=== PATIENT | female | born 1950 | race Caucasian/White ===

== ENCOUNTER 2018-12-27 10:28 | Emergency (ER) | payer MEDICARE ==
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
[2018-12-27] MEDS ORDERED: HYDROcodone/Acetaminophen 5/325 mg Tablet ONE (12:12)
[2018-12-27] MEDS ORDERED: Ibuprofen 400 MG TAB ONE (12:12)
[2018-12-27] MEDS ORDERED: Acetaminophen 325 MG TAB ONE (12:12)
== END 2018-12-27 12:32 | disposition home or self-care (01) ==
LOC: MADERS 10:28
DX: S46.912A Strain of unspecified muscle, fascia and tendon at shoulder and upper arm level, left arm, initial encounter (principal); I10 Essential (primary) hypertension; E11.40 Type 2 diabetes mellitus with diabetic neuropathy, unspecified; V49.9XXA Car occupant (driver) (passenger) injured in unspecified traffic accident, initial encounter

== ENCOUNTER 2019-07-25 12:41 | Outpatient (CLI) | payer MEDICARE ==
--- NOTE | 2019-07-25 13:26 | RAD ---
EXAM: LUMBAR SPINE FIVE VIEWS INCLUDING STANDING FLEXION AND EXTENSION VIEWS: 07/25/19 HISTORY: Lumbar spinal canal stenosis. Post laminectomy. COMPARISON: 07/22/17. FINDINGS: Extensive multilevel disc osteophytosis and facet arthrosis. Postop laminectomy changes at L3 and L4. Moderate dextroscoliosis. Grade I anterolisthesis of L4 on L5 and L3 on L4 with little overall romero e from the prior study. No significant abnormal translation between flexion and extension. No acute f racture or dislocation. Disc space narrowing and vacuum phenomenon at L4-L5. IMPRESSION: Severe spondylosis. Dextroscoliosis. Postoperative laminectomy at L3 and L4. Anterolisthesis of L3 on L3 and L4 on L5 without overt abnormal translation. POS: OFF
== END 2019-07-25 12:42 | disposition home or self-care (01) ==
LOC: MADRAD 12:41
PROVIDERS: ATTEND Specialist
DX: M48.062 Spinal stenosis, lumbar region with neurogenic claudication (principal); M96.1 Postlaminectomy syndrome, not elsewhere classified; M47.816 Spondylosis without myelopathy or radiculopathy, lumbar region; M43.16 Spondylolisthesis, lumbar region; M41.9 Scoliosis, unspecified; Z98.890 Other specified postprocedural states
CPT/HCPCS: 72110

== ENCOUNTER 2019-10-14 17:11 | Emergency (ER) | payer MEDICARE ==
[2019-10-14] MEDS ORDERED: Ketorolac Tromethamine 30 MG/ML VIAL ONE (18:37)
[2019-10-14] MEDS ORDERED: Cyclobenzaprine 10 MG TAB ONE (18:37)
== END 2019-10-14 19:51 | disposition home or self-care (01) ==
LOC: MADERS 17:11
DX: S39.012A Strain of muscle, fascia and tendon of lower back, initial encounter (principal); I10 Essential (primary) hypertension; E78.5 Hyperlipidemia, unspecified; E11.40 Type 2 diabetes mellitus with diabetic neuropathy, unspecified; Z79.84 Long term (current) use of oral hypoglycemic drugs; Z79.899 Other long term (current) drug therapy; X50.9XXA Other and unspecified overexertion or strenuous movements or postures, initial encounter
CPT/HCPCS: 96372; 99283; J1885

== ENCOUNTER 2019-10-23 16:58 | Inpatient (IN) | payer MEDICARE ==
[2019-10-23] MEDS ORDERED: Meloxicam 7.5 MG TAB PO SCH (21:00)
[2019-10-23] MEDS ORDERED: traMADol HCl 50 MG TAB PO PRN (21:14)
[2019-10-23] MEDS ORDERED: Cyclobenzaprine 10 MG TAB PO PRN ×2 (21:15→21:19)
[2019-10-23] MEDS ORDERED: Artificial Tear Sol 15 ML BOT EA EYE SCH (21:30)
[2019-10-23] MEDS ORDERED: Gabapentin 100 MG CAP PO SCH ×2 (21:45→22:30)
[2019-10-23] MEDS ORDERED: Ondansetron ODT 4 MG TAB PO PRN (22:58)
[2019-10-23] MEDS ORDERED: Acetaminophen 325 MG TAB PO PRN (22:58)
[2019-10-23] MEDS ORDERED: Dextrose 5% in Water 1,000 ML IV PRN (23:10)
[2019-10-23] MEDS ORDERED: Dextrose 50% Abboject 50 ML SYRINGE SLOW IVP PRN (23:10)
[2019-10-24] MEDS: traMADol HCl 50 MG TAB PO PRN ×3 (04:54→17:59)
[2019-10-24] MEDS: Aspirin 325 MG TAB PO SCH (08:11)
[2019-10-24] MEDS: Cyanocobalamin (Vitamin B-12) 1,000 MCG TAB PO SCH (08:11)
[2019-10-24] MEDS: Lisinopril 5 MG TAB PO SCH (08:11)
[2019-10-24] MEDS: Multivit, Therapeutic 1 TAB PO SCH (08:11)
[2019-10-24] MEDS: Alogliptin 6.25 MG TAB PO SCH (08:11)
[2019-10-24] MEDS: Amlodipine 5 MG TAB PO SCH (08:11)
[2019-10-24] MEDS: Cyclobenzaprine 10 MG TAB PO SCH ×3 (08:12→20:29)
[2019-10-24] MEDS: Enoxaparin Sodium 30 MG/0.3 ML SYRINGE SC SCH (08:12)
[2019-10-24] MEDS: Furosemide 20 MG TAB PO SCH (08:12)
[2019-10-24] MEDS: Gabapentin 100 MG CAP PO SCH ×2 (08:12→20:29)
[2019-10-24] MEDS: metFORMIN 500 MG TAB PO SCH (08:12)
[2019-10-24] MEDS: Artificial Tear Sol 15 ML BOT EA EYE SCH ×2 (08:12→20:31)
[2019-10-24] MEDS ORDERED: Gabapentin 100 MG CAP PO SCH ×2 (09:00)
[2019-10-24] MEDS: Meloxicam 7.5 MG TAB PO SCH (20:29)
[2019-10-24] MEDS: Simvastatin 20 MG TAB PO SCH (20:30)
[2019-10-24] MEDS ORDERED: Non-Formulary Item 1 EACH (Lovastatin [Lovastatin] 20 MG) PO SCH (21:00)
[2019-10-25] MEDS: traMADol HCl 50 MG TAB PO PRN ×4 (03:20→21:35)
[2019-10-25] MEDS: Alogliptin 6.25 MG TAB PO SCH (08:21)
[2019-10-25] MEDS: Cyclobenzaprine 10 MG TAB PO SCH ×3 (08:21→20:09)
[2019-10-25] MEDS: Amlodipine 5 MG TAB PO SCH (08:21)
[2019-10-25] MEDS: Enoxaparin Sodium 30 MG/0.3 ML SYRINGE SC SCH (08:21)
[2019-10-25] MEDS: Gabapentin 100 MG CAP PO SCH ×2 (08:22→20:10)
[2019-10-25] MEDS: Furosemide 20 MG TAB PO SCH (08:22)
[2019-10-25] MEDS: Aspirin 325 MG TAB PO SCH (08:22)
[2019-10-25] MEDS: metFORMIN 500 MG TAB PO SCH (08:22)
[2019-10-25] MEDS: Lisinopril 5 MG TAB PO SCH (08:23)
[2019-10-25] MEDS: Multivit, Therapeutic 1 TAB PO SCH (08:23)
[2019-10-25] MEDS: Cyanocobalamin (Vitamin B-12) 1,000 MCG TAB PO SCH (08:23)
[2019-10-25] MEDS: Artificial Tear Sol 15 ML BOT EA EYE SCH ×2 (08:25→20:14)
[2019-10-25] MEDS: Meloxicam 7.5 MG TAB PO SCH (20:09)
[2019-10-25] MEDS: Simvastatin 20 MG TAB PO SCH (20:09)
[2019-10-26] MEDS: traMADol HCl 50 MG TAB PO PRN ×3 (05:34→20:52)
[2019-10-26] MEDS: Cyanocobalamin (Vitamin B-12) 1,000 MCG TAB PO SCH (08:06)
[2019-10-26] MEDS: Gabapentin 100 MG CAP PO SCH ×2 (08:06→20:51)
[2019-10-26] MEDS: metFORMIN 500 MG TAB PO SCH (08:06)
[2019-10-26] MEDS: Lisinopril 5 MG TAB PO SCH (08:06)
[2019-10-26] MEDS: Aspirin 325 MG TAB PO SCH (08:06)
[2019-10-26] MEDS: Alogliptin 6.25 MG TAB PO SCH (08:06)
[2019-10-26] MEDS: Amlodipine 5 MG TAB PO SCH (08:06)
[2019-10-26] MEDS: Multivit, Therapeutic 1 TAB PO SCH (08:06)
[2019-10-26] MEDS: Cyclobenzaprine 10 MG TAB PO SCH ×3 (08:06→20:50)
[2019-10-26] MEDS: Artificial Tear Sol 15 ML BOT EA EYE SCH ×2 (08:07→20:50)
[2019-10-26] MEDS: Enoxaparin Sodium 30 MG/0.3 ML SYRINGE SC SCH (08:07)
[2019-10-26] MEDS: Furosemide 20 MG TAB PO SCH (08:08)
[2019-10-26] MEDS ORDERED: traMADol HCl 50 MG TAB PO SCH (10:30)
--- NOTE | 2019-10-26 11:15 | HP ---
PRIMARY CARE PHYSICIAN: Kaitlin Dunlap, Nurse Practitioner, [place]. REASON FOR ADMISSION: For skilled rehabilitation at [facility], status post persistent progressive degenerative lumbar spine pain, weakness, and compression. HISTORY OF PRESENT ILLNESS: Ms. Vogt is a 69-year-old very pleasant female who presented to the emergency room on October 14 due to persistent lower back pain. Patient does have a history of hypertension; diabetes type 2; recurrent chronic back pain, status post laminectomy one year ago, complicated by postoperative wound cellulitis. Patient states that the back pain did not resolve with continued intermittent monthly epidural steroid injections since then. Patient had a repeat MRI two months ago that showed worsening degenerative disease with L3-L4 nerve compressions. She was not reevaluated by neurosurgeon, but presented to the emergency room as she was unable to stand up or ambulate after moving some [place] trees a couple of days ago. Patient during the emergency visit stated that pain was 10/10 in severity. She denies weakness to extremities, but was unable to ambulate. Patient had a repeat lumbar spine CT on the and this confirmed multilevel lumbar degenerative and postoperative changes with area of canal and foraminal narrowing. The decision was made to consult with the neurosurgical team who recommended conservative plan and advised to consult with pain specialist for PAVEL and rehab placement. Unfortunately, patient was unable to see neurosurgeon during this hospitalization as she was recommended to follow up with Dr. Thomason as an outpatient who did surgery two years ago. The patient had epidural steroid injections for the back today and due to physical decondition, gait instability, decreased ambulation the decision was made to admit the patient to skilled rehabilitation prior to discharge back to her home. Upon evaluation of patient today, she was excited to start physical therapy, but she was a little upset due to it being [place] season and she wanted to spend [place] with her family. Patient denied any fever, chest pain, shortness of breath, incontinence of stool or urine. No palpitations. PAST MEDICAL HISTORY: Hypertension, diabetes type 2, obesity, hyperlipidemia, chronic lower back pain, and peripheral neuropathy. PAST SURGICAL HISTORY: Laminectomy in 2018, cholecystectomy, and hysterectomy. HOME MEDICATIONS: 1. Amlodipine 10 mg daily. 2. Alogliptin benzoate 12.5 daily. 3. Aspirin 325 daily. 4. Vitamin B12, 1000 mcg daily. 5. Flexeril 10 mg t.i.d. 6. Furosemide 20 mg daily. 7. Gabapentin 200 mg b.i.d. 8. Meloxicam 15 at bedtime. 9. Metformin 500 q.a.m. 10. Simvastatin 10 at bedtime. 11. Tramadol 50 q.6 p.r.n. ALLERGIES: CODEINE. CODE STATUS: Patient is a full code. FAMILY HISTORY: Significant for diabetes and coronary artery disease. SOCIAL HISTORY: Patient resides in [facility]. She lives alone. She has a daughter who visits. She denies any tobacco, alcohol, or illicit drug use. REVIEW OF SYSTEMS: Noted in the HPI, otherwise all other systems reviewed x14 were negative. PHYSICAL EXAMINATION: VITAL SIGNS: Temperature 98.5, pulse 78, respirations 16, O2 is 93% on room air , and blood pressure 124/60. GENERAL: Patient is alert, awake, and oriented x3. Very pleasant, sitting comfortably in bed. HEENT: Normocephalic and atraumatic. Moist oral mucous membrane. NECK: No JVD. No carotid bruit. RESPIRATORY: Good air entry bilaterally. No wheezing. No crackles. CARDIOVASCULAR: S1, S2. Rate rhythm regular. ABDOMEN: Positive bowel sounds. Nontender and nondistended. No guarding. No rebound. BACK: Positive tenderness to midthoracic to sacral area with bilateral CVA tenderness, although nonspecific. NEUROLOGIC: Patient is alert, awake, and oriented x3. Moving all extremities without any symmetrical neurological deficit. ASSESSMENT: 1. Gait instability. 2. Intractable back pain due to progressive degenerative lumbar spine disease with nerve compression. 3. Hypertension. 4. Diabetes, type 2. 5. Peripheral neuropathy. PLAN: Patient is a 69-year-old female, who will be admitted to the [facility]. We will consult Physical Therapy to help with gait stability and strengthening. We will consult Occupational Therapy to help with activities of daily living prior to discharge back to her home. We will resume patient's home medications. We will do Accu-Cheks fasting just once a day. We will place the patient on a 2000-calorie carb diet. Patient is concerned about her home medications as some where not given in [facility]. I advised the daughter to bring all of her medication bottles and the original pack for us to be able to reconcile her medications. Patient was also notified that she could have a Day Pass on , so she could spend time with her family. ESTIMATED LENGTH OF STAY: Two to three weeks. FOLLOWUP: Patient to follow up with neurosurgeon as an outpatient and pain specialist as an outpatient. CODE STATUS: Full code. Job ID: [id number] MTDD
[2019-10-26] MEDS: Simvastatin 20 MG TAB PO SCH (20:51)
[2019-10-26] MEDS: Meloxicam 7.5 MG TAB PO SCH (20:52)
[2019-10-27] MEDS: traMADol HCl 50 MG TAB PO PRN ×3 (08:30→22:12)
[2019-10-27] MEDS: Artificial Tear Sol 15 ML BOT EA EYE SCH ×2 (08:32→21:29)
[2019-10-27] MEDS: Enoxaparin Sodium 30 MG/0.3 ML SYRINGE SC SCH (08:33)
[2019-10-27] MEDS: Alogliptin 6.25 MG TAB PO SCH (08:33)
[2019-10-27] MEDS: Multivit, Therapeutic 1 TAB PO SCH (08:34)
[2019-10-27] MEDS: Gabapentin 100 MG CAP PO SCH ×2 (08:34→21:30)
[2019-10-27] MEDS: Amlodipine 5 MG TAB PO SCH (08:34)
[2019-10-27] MEDS: Aspirin 325 MG TAB PO SCH (08:34)
[2019-10-27] MEDS: Lisinopril 5 MG TAB PO SCH (08:34)
[2019-10-27] MEDS: Furosemide 20 MG TAB PO SCH (08:35)
[2019-10-27] MEDS: Cyanocobalamin (Vitamin B-12) 1,000 MCG TAB PO SCH (08:35)
[2019-10-27] MEDS: metFORMIN 500 MG TAB PO SCH (08:35)
[2019-10-27] MEDS: Cyclobenzaprine 10 MG TAB PO SCH ×3 (08:39→21:30)
[2019-10-27] MEDS: Meloxicam 7.5 MG TAB PO SCH (21:30)
[2019-10-27] MEDS: Simvastatin 20 MG TAB PO SCH (21:30)
[2019-10-28] MEDS: Alogliptin 6.25 MG TAB PO SCH (08:54)
[2019-10-28] MEDS: Enoxaparin Sodium 30 MG/0.3 ML SYRINGE SC SCH (08:55)
[2019-10-28] MEDS: Amlodipine 5 MG TAB PO SCH (08:55)
[2019-10-28] MEDS: Multivit, Therapeutic 1 TAB PO SCH (08:55)
[2019-10-28] MEDS: Gabapentin 100 MG CAP PO SCH ×2 (08:56→21:01)
[2019-10-28] MEDS: Aspirin 325 MG TAB PO SCH (08:56)
[2019-10-28] MEDS: Furosemide 20 MG TAB PO SCH (08:56)
[2019-10-28] MEDS: Cyclobenzaprine 10 MG TAB PO SCH ×3 (08:56→21:01)
[2019-10-28] MEDS: metFORMIN 500 MG TAB PO SCH (08:56)
[2019-10-28] MEDS: Lisinopril 5 MG TAB PO SCH (08:56)
[2019-10-28] MEDS: Cyanocobalamin (Vitamin B-12) 1,000 MCG TAB PO SCH (08:56)
[2019-10-28] MEDS: traMADol HCl 50 MG TAB PO PRN ×3 (08:57→21:05)
[2019-10-28] MEDS: Artificial Tear Sol 15 ML BOT EA EYE SCH ×2 (15:11→21:01)
[2019-10-28] MEDS: Meloxicam 7.5 MG TAB PO SCH (21:01)
[2019-10-28] MEDS: Simvastatin 20 MG TAB PO SCH (21:02)
[2019-10-29] MEDS: Amlodipine 5 MG TAB PO SCH (08:51)
[2019-10-29] MEDS: metFORMIN 500 MG TAB PO SCH (08:51)
[2019-10-29] MEDS: Aspirin 325 MG TAB PO SCH (08:51)
[2019-10-29] MEDS: Gabapentin 100 MG CAP PO SCH ×2 (08:51→20:18)
[2019-10-29] MEDS: Furosemide 20 MG TAB PO SCH (08:51)
[2019-10-29] MEDS: Multivit, Therapeutic 1 TAB PO SCH (08:52)
[2019-10-29] MEDS: Enoxaparin Sodium 30 MG/0.3 ML SYRINGE SC SCH (08:52)
[2019-10-29] MEDS: Cyanocobalamin (Vitamin B-12) 1,000 MCG TAB PO SCH (08:52)
[2019-10-29] MEDS: Cyclobenzaprine 10 MG TAB PO SCH ×3 (08:52→20:18)
[2019-10-29] MEDS: Artificial Tear Sol 15 ML BOT EA EYE SCH ×2 (08:52→20:18)
[2019-10-29] MEDS: Lisinopril 5 MG TAB PO SCH (08:52)
[2019-10-29] MEDS: Alogliptin 6.25 MG TAB PO SCH (08:53)
[2019-10-29] MEDS: Senokot S 8.6-50 MG TAB PO PRN (15:42)
[2019-10-29] MEDS: Simvastatin 20 MG TAB PO SCH (20:18)
[2019-10-29] MEDS: Meloxicam 7.5 MG TAB PO SCH (20:18)
[2019-10-29] MEDS: traMADol HCl 50 MG TAB PO PRN (20:19)
[2019-10-30] MEDS: traMADol HCl 50 MG TAB PO PRN ×3 (04:17→20:25)
[2019-10-30] MEDS: Gabapentin 100 MG CAP PO SCH ×2 (08:52→20:25)
[2019-10-30] MEDS: Enoxaparin Sodium 30 MG/0.3 ML SYRINGE SC SCH (08:52)
[2019-10-30] MEDS: Cyclobenzaprine 10 MG TAB PO SCH ×3 (08:53→20:25)
[2019-10-30] MEDS: Amlodipine 5 MG TAB PO SCH (08:53)
[2019-10-30] MEDS: metFORMIN 500 MG TAB PO SCH (08:53)
[2019-10-30] MEDS: Artificial Tear Sol 15 ML BOT EA EYE SCH ×2 (08:54→20:24)
[2019-10-30] MEDS: Cyanocobalamin (Vitamin B-12) 1,000 MCG TAB PO SCH (08:54)
[2019-10-30] MEDS: Aspirin 325 MG TAB PO SCH (08:54)
[2019-10-30] MEDS: Furosemide 20 MG TAB PO SCH (08:54)
[2019-10-30] MEDS: Alogliptin 6.25 MG TAB PO SCH (08:54)
[2019-10-30] MEDS: Lisinopril 5 MG TAB PO SCH (08:54)
[2019-10-30] MEDS: Multivit, Therapeutic 1 TAB PO SCH (08:54)
[2019-10-30] MEDS: Meloxicam 7.5 MG TAB PO SCH (20:25)
[2019-10-30] MEDS: Simvastatin 20 MG TAB PO SCH (20:25)
[2019-10-31] MEDS: Lisinopril 5 MG TAB PO SCH (08:04)
[2019-10-31] MEDS: Gabapentin 100 MG CAP PO SCH ×2 (08:04→20:40)
[2019-10-31] MEDS: Aspirin 325 MG TAB PO SCH (08:04)
[2019-10-31] MEDS: Alogliptin 6.25 MG TAB PO SCH (08:05)
[2019-10-31] MEDS: Cyanocobalamin (Vitamin B-12) 1,000 MCG TAB PO SCH (08:05)
[2019-10-31] MEDS: Multivit, Therapeutic 1 TAB PO SCH (08:05)
[2019-10-31] MEDS: Amlodipine 5 MG TAB PO SCH (08:05)
[2019-10-31] MEDS: Enoxaparin Sodium 30 MG/0.3 ML SYRINGE SC SCH (08:05)
[2019-10-31] MEDS: metFORMIN 500 MG TAB PO SCH (08:05)
[2019-10-31] MEDS: Furosemide 20 MG TAB PO SCH (08:05)
[2019-10-31] MEDS: Artificial Tear Sol 15 ML BOT EA EYE SCH ×2 (08:06→20:42)
[2019-10-31] MEDS: Senokot S 8.6-50 MG TAB PO PRN (08:14)
[2019-10-31] MEDS: traMADol HCl 50 MG TAB PO PRN ×2 (08:14→16:54)
[2019-10-31] MEDS: Cyclobenzaprine 10 MG TAB PO SCH ×3 (10:16→20:42)
[2019-10-31] MEDS: Lidocaine 5% Patch TD SCH (10:16)
[2019-10-31] MEDS ORDERED: Bisacodyl 10 MG SUPP PR PRN (13:52)
[2019-10-31] MEDS: Polyethylene Glycol 3350 17 GM Packet PO PRN (14:27)
[2019-10-31] MEDS: Acetaminophen 500 MG TAB PO SCH ×2 (14:27→21:03)
[2019-10-31] MEDS: Simvastatin 20 MG TAB PO SCH (20:41)
[2019-10-31] MEDS: Meloxicam 7.5 MG TAB PO SCH (20:42)
[2019-10-31] MEDS: Lidocaine Patch Removal 1 EACH TOP SCH (21:09)
[2019-11-01] MEDS: Acetaminophen 500 MG TAB PO SCH ×3 (05:23→22:30)
[2019-11-01] MEDS: Gabapentin 100 MG CAP PO SCH ×2 (08:36→20:18)
[2019-11-01] MEDS: Cyclobenzaprine 10 MG TAB PO SCH ×3 (08:36→20:18)
[2019-11-01] MEDS: Amlodipine 5 MG TAB PO SCH (08:36)
[2019-11-01] MEDS: Furosemide 20 MG TAB PO SCH (08:37)
[2019-11-01] MEDS: Aspirin 325 MG TAB PO SCH (08:37)
[2019-11-01] MEDS: Lisinopril 5 MG TAB PO SCH (08:37)
[2019-11-01] MEDS: Alogliptin 6.25 MG TAB PO SCH (08:37)
[2019-11-01] MEDS: Cyanocobalamin (Vitamin B-12) 1,000 MCG TAB PO SCH (08:37)
[2019-11-01] MEDS: metFORMIN 500 MG TAB PO SCH (08:37)
[2019-11-01] MEDS: Multivit, Therapeutic 1 TAB PO SCH (08:38)
[2019-11-01] MEDS: Enoxaparin Sodium 30 MG/0.3 ML SYRINGE SC SCH (08:38)
[2019-11-01] MEDS: Lidocaine 5% Patch TD SCH (08:38)
[2019-11-01] MEDS: Artificial Tear Sol 15 ML BOT EA EYE SCH ×2 (08:39→20:19)
[2019-11-01] MEDS: traMADol HCl 50 MG TAB PO PRN (11:09)
[2019-11-01] MEDS: Meloxicam 7.5 MG TAB PO SCH (20:18)
[2019-11-01] MEDS: Simvastatin 20 MG TAB PO SCH (20:18)
[2019-11-01] MEDS: Lidocaine Patch Removal 1 EACH TOP SCH (22:30)
[2019-11-02] MEDS: traMADol HCl 50 MG TAB PO PRN ×2 (00:35→08:38)
[2019-11-02] MEDS: Acetaminophen 500 MG TAB PO SCH ×3 (05:16→21:15)
[2019-11-02] MEDS: Aspirin 325 MG TAB PO SCH (08:28)
[2019-11-02] MEDS: Enoxaparin Sodium 30 MG/0.3 ML SYRINGE SC SCH (08:28)
[2019-11-02] MEDS: Amlodipine 5 MG TAB PO SCH (08:29)
[2019-11-02] MEDS: Cyclobenzaprine 10 MG TAB PO SCH ×3 (08:29→21:15)
[2019-11-02] MEDS: Alogliptin 6.25 MG TAB PO SCH (08:29)
[2019-11-02] MEDS: Cyanocobalamin (Vitamin B-12) 1,000 MCG TAB PO SCH (08:30)
[2019-11-02] MEDS: metFORMIN 500 MG TAB PO SCH (08:30)
[2019-11-02] MEDS: Furosemide 20 MG TAB PO SCH (08:30)
[2019-11-02] MEDS: Multivit, Therapeutic 1 TAB PO SCH (08:30)
[2019-11-02] MEDS: Gabapentin 100 MG CAP PO SCH ×2 (08:30→21:14)
[2019-11-02] MEDS: Artificial Tear Sol 15 ML BOT EA EYE SCH ×2 (08:30→21:12)
[2019-11-02] MEDS: Senokot S 8.6-50 MG TAB PO PRN (08:39)
[2019-11-02] MEDS: Lidocaine 5% Patch TD SCH (10:33)
[2019-11-02] MEDS: Simvastatin 20 MG TAB PO SCH (21:13)
[2019-11-02] MEDS: Meloxicam 7.5 MG TAB PO SCH (21:14)
[2019-11-02] MEDS: Lidocaine Patch Removal 1 EACH TOP SCH (21:15)
[2019-11-03] MEDS: traMADol HCl 50 MG TAB PO PRN (02:32)
[2019-11-03] MEDS: Acetaminophen 500 MG TAB PO SCH ×3 (05:40→21:22)
[2019-11-03] MEDS: Alogliptin 6.25 MG TAB PO SCH (08:11)
[2019-11-03] MEDS: Cyclobenzaprine 10 MG TAB PO SCH ×3 (08:11→21:21)
[2019-11-03] MEDS: Aspirin 325 MG TAB PO SCH (08:11)
[2019-11-03] MEDS: Artificial Tear Sol 15 ML BOT EA EYE SCH ×2 (08:11→21:21)
[2019-11-03] MEDS: Multivit, Therapeutic 1 TAB PO SCH (08:11)
[2019-11-03] MEDS: Enoxaparin Sodium 30 MG/0.3 ML SYRINGE SC SCH (08:11)
[2019-11-03] MEDS: metFORMIN 500 MG TAB PO SCH (08:12)
[2019-11-03] MEDS: Furosemide 20 MG TAB PO SCH (08:12)
[2019-11-03] MEDS: Amlodipine 5 MG TAB PO SCH (08:12)
[2019-11-03] MEDS: Gabapentin 100 MG CAP PO SCH ×2 (08:12→21:21)
[2019-11-03] MEDS: Cyanocobalamin (Vitamin B-12) 1,000 MCG TAB PO SCH (08:13)
[2019-11-03] MEDS: HYDROcodone/Acetaminophen 7.5/325 mg Tablet PO SCH ×2 (09:29→19:25)
[2019-11-03] MEDS: Lidocaine 5% Patch TD SCH (09:30)
[2019-11-03] MEDS: Senokot S 8.6-50 MG TAB PO PRN (14:43)
[2019-11-03] MEDS: Meloxicam 7.5 MG TAB PO SCH (21:21)
[2019-11-03] MEDS: Simvastatin 20 MG TAB PO SCH (21:21)
[2019-11-03] MEDS: Lidocaine Patch Removal 1 EACH TOP SCH (21:28)
[2019-11-04] MEDS: HYDROcodone/Acetaminophen 7.5/325 mg Tablet PO SCH ×4 (00:54→17:36)
[2019-11-04] MEDS: Acetaminophen 500 MG TAB PO SCH (05:57)
[2019-11-04] MEDS: Alogliptin 6.25 MG TAB PO SCH (08:15)
[2019-11-04] MEDS: Multivit, Therapeutic 1 TAB PO SCH (08:15)
[2019-11-04] MEDS: Furosemide 20 MG TAB PO SCH (08:16)
[2019-11-04] MEDS: Cyanocobalamin (Vitamin B-12) 1,000 MCG TAB PO SCH (08:16)
[2019-11-04] MEDS: Gabapentin 100 MG CAP PO SCH ×2 (08:16→21:40)
[2019-11-04] MEDS: Enoxaparin Sodium 30 MG/0.3 ML SYRINGE SC SCH (08:16)
[2019-11-04] MEDS: Cyclobenzaprine 10 MG TAB PO SCH ×3 (08:16→21:40)
[2019-11-04] MEDS: Artificial Tear Sol 15 ML BOT EA EYE SCH ×2 (08:16→21:40)
[2019-11-04] MEDS: metFORMIN 500 MG TAB PO SCH (08:16)
[2019-11-04] MEDS: Aspirin 325 MG TAB PO SCH (08:16)
[2019-11-04] MEDS: Amlodipine 5 MG TAB PO SCH (08:23)
[2019-11-04] MEDS: Lidocaine 5% Patch TD SCH (10:57)
[2019-11-04] MEDS: Meloxicam 7.5 MG TAB PO SCH (21:40)
[2019-11-04] MEDS: Simvastatin 20 MG TAB PO SCH (21:41)
[2019-11-04] MEDS: Lidocaine Patch Removal 1 EACH TOP SCH (21:41)
[2019-11-05] MEDS: HYDROcodone/Acetaminophen 7.5/325 mg Tablet PO SCH ×4 (00:18→17:35)
[2019-11-05] MEDS: Alogliptin 6.25 MG TAB PO SCH (08:29)
[2019-11-05] MEDS: metFORMIN 500 MG TAB PO SCH (08:29)
[2019-11-05] MEDS: Gabapentin 100 MG CAP PO SCH ×2 (08:29→21:29)
[2019-11-05] MEDS: Furosemide 20 MG TAB PO SCH (08:29)
[2019-11-05] MEDS: Cyanocobalamin (Vitamin B-12) 1,000 MCG TAB PO SCH (08:30)
[2019-11-05] MEDS: Enoxaparin Sodium 30 MG/0.3 ML SYRINGE SC SCH (08:30)
[2019-11-05] MEDS: Aspirin 325 MG TAB PO SCH (08:30)
[2019-11-05] MEDS: Multivit, Therapeutic 1 TAB PO SCH (08:30)
[2019-11-05] MEDS: Amlodipine 5 MG TAB PO SCH (08:30)
[2019-11-05] MEDS: Artificial Tear Sol 15 ML BOT EA EYE SCH ×2 (08:30→21:34)
[2019-11-05] MEDS: Cyclobenzaprine 10 MG TAB PO SCH ×3 (08:30→21:33)
[2019-11-05] MEDS: Lidocaine 5% Patch TD SCH (10:20)
[2019-11-05] MEDS: Meloxicam 7.5 MG TAB PO SCH (21:30)
[2019-11-05] MEDS: Simvastatin 20 MG TAB PO SCH (21:30)
[2019-11-05] MEDS: Lidocaine Patch Removal 1 EACH TOP SCH (21:34)
[2019-11-06] MEDS: HYDROcodone/Acetaminophen 7.5/325 mg Tablet PO SCH ×3 (01:09→11:58)
[2019-11-06] MEDS: Furosemide 20 MG TAB PO SCH (09:45)
[2019-11-06] MEDS: Amlodipine 5 MG TAB PO SCH (09:45)
[2019-11-06] MEDS: Alogliptin 6.25 MG TAB PO SCH (09:46)
[2019-11-06] MEDS: metFORMIN 500 MG TAB PO SCH (09:46)
[2019-11-06] MEDS: Cyclobenzaprine 10 MG TAB PO SCH ×3 (09:46→20:59)
[2019-11-06] MEDS: Gabapentin 100 MG CAP PO SCH ×2 (09:46→20:59)
[2019-11-06] MEDS: Aspirin 325 MG TAB PO SCH (09:46)
[2019-11-06] MEDS: Enoxaparin Sodium 30 MG/0.3 ML SYRINGE SC SCH (09:47)
[2019-11-06] MEDS: Lidocaine 5% Patch TD SCH ×2 (09:47→09:55)
[2019-11-06] MEDS: Cyanocobalamin (Vitamin B-12) 1,000 MCG TAB PO SCH (09:47)
[2019-11-06] MEDS: Multivit, Therapeutic 1 TAB PO SCH (09:47)
[2019-11-06] MEDS: Artificial Tear Sol 15 ML BOT EA EYE SCH ×2 (09:51→21:00)
[2019-11-06] MEDS: HYDROcodone/Acetaminophen 7.5/325 mg Tablet PO PRN (19:34)
[2019-11-06] MEDS: Meloxicam 7.5 MG TAB PO SCH (20:59)
[2019-11-06] MEDS: Simvastatin 20 MG TAB PO SCH (20:59)
[2019-11-06] MEDS: Lidocaine Patch Removal 1 EACH TOP SCH (21:02)
[2019-11-07] MEDS: HYDROcodone/Acetaminophen 7.5/325 mg Tablet PO PRN ×4 (01:16→23:01)
[2019-11-07] MEDS: Enoxaparin Sodium 30 MG/0.3 ML SYRINGE SC SCH (08:28)
[2019-11-07] MEDS: Lidocaine 5% Patch TD SCH (08:28)
[2019-11-07] MEDS: Amlodipine 5 MG TAB PO SCH (08:28)
[2019-11-07] MEDS: Multivit, Therapeutic 1 TAB PO SCH (08:28)
[2019-11-07] MEDS: Alogliptin 6.25 MG TAB PO SCH (08:31)
[2019-11-07] MEDS: metFORMIN 500 MG TAB PO SCH (08:32)
[2019-11-07] MEDS: Aspirin 325 MG TAB PO SCH (08:32)
[2019-11-07] MEDS: Gabapentin 100 MG CAP PO SCH ×2 (08:32→21:21)
[2019-11-07] MEDS: Cyanocobalamin (Vitamin B-12) 1,000 MCG TAB PO SCH (08:32)
[2019-11-07] MEDS: Cyclobenzaprine 10 MG TAB PO SCH ×3 (08:32→21:22)
[2019-11-07] MEDS: Furosemide 20 MG TAB PO SCH (08:32)
[2019-11-07] MEDS: Artificial Tear Sol 15 ML BOT EA EYE SCH ×2 (08:33→21:22)
[2019-11-07] MEDS: Senokot S 8.6-50 MG TAB PO PRN (08:54)
[2019-11-07] MEDS: Meloxicam 7.5 MG TAB PO SCH (21:21)
[2019-11-07] MEDS: Simvastatin 20 MG TAB PO SCH (21:21)
[2019-11-07] MEDS: Lidocaine Patch Removal 1 EACH TOP SCH (22:09)
[2019-11-08] MEDS: Alogliptin 6.25 MG TAB PO SCH (07:49)
[2019-11-08] MEDS: HYDROcodone/Acetaminophen 7.5/325 mg Tablet PO PRN ×3 (07:49→21:46)
[2019-11-08] MEDS: Cyclobenzaprine 10 MG TAB PO SCH ×3 (07:49→20:27)
[2019-11-08] MEDS: Multivit, Therapeutic 1 TAB PO SCH (07:50)
[2019-11-08] MEDS: Aspirin 325 MG TAB PO SCH (07:50)
[2019-11-08] MEDS: Amlodipine 5 MG TAB PO SCH (07:50)
[2019-11-08] MEDS: Furosemide 20 MG TAB PO SCH (07:50)
[2019-11-08] MEDS: Gabapentin 100 MG CAP PO SCH ×2 (07:50→20:27)
[2019-11-08] MEDS: metFORMIN 500 MG TAB PO SCH (07:50)
[2019-11-08] MEDS: Cyanocobalamin (Vitamin B-12) 1,000 MCG TAB PO SCH (07:50)
[2019-11-08] MEDS: Enoxaparin Sodium 30 MG/0.3 ML SYRINGE SC SCH (07:51)
[2019-11-08] MEDS: Artificial Tear Sol 15 ML BOT EA EYE SCH ×2 (07:51→20:28)
[2019-11-08] MEDS: Lidocaine 5% Patch TD SCH (10:35)
[2019-11-08] MEDS: Meloxicam 7.5 MG TAB PO SCH (20:27)
[2019-11-08] MEDS: Simvastatin 20 MG TAB PO SCH (20:27)
[2019-11-08] MEDS: Lidocaine Patch Removal 1 EACH TOP SCH (21:40)
[2019-11-09] MEDS: HYDROcodone/Acetaminophen 7.5/325 mg Tablet PO PRN ×2 (03:46→10:38)
[2019-11-09] MEDS: Multivit, Therapeutic 1 TAB PO SCH (08:39)
[2019-11-09] MEDS: Furosemide 20 MG TAB PO SCH (08:39)
[2019-11-09] MEDS: metFORMIN 500 MG TAB PO SCH (08:39)
[2019-11-09] MEDS: Gabapentin 100 MG CAP PO SCH ×2 (08:39→20:54)
[2019-11-09] MEDS: Enoxaparin Sodium 30 MG/0.3 ML SYRINGE SC SCH (08:39)
[2019-11-09] MEDS: Aspirin 325 MG TAB PO SCH (08:39)
[2019-11-09] MEDS: Amlodipine 5 MG TAB PO SCH (08:39)
[2019-11-09] MEDS: Alogliptin 6.25 MG TAB PO SCH (08:39)
[2019-11-09] MEDS: Artificial Tear Sol 15 ML BOT EA EYE SCH ×2 (08:39→20:55)
[2019-11-09] MEDS: Cyanocobalamin (Vitamin B-12) 1,000 MCG TAB PO SCH (08:39)
[2019-11-09] MEDS: Cyclobenzaprine 10 MG TAB PO SCH ×3 (08:39→20:54)
[2019-11-09] MEDS: Lidocaine 5% Patch TD SCH (08:40)
[2019-11-09] MEDS: traMADol HCl 50 MG TAB PO PRN (17:42)
[2019-11-09] MEDS: Simvastatin 20 MG TAB PO SCH (20:54)
[2019-11-09] MEDS: Meloxicam 7.5 MG TAB PO SCH (20:54)
[2019-11-09] MEDS: Lidocaine Patch Removal 1 EACH TOP SCH (21:34)
[2019-11-10] MEDS: traMADol HCl 50 MG TAB PO PRN ×3 (07:19→21:01)
[2019-11-10] MEDS: metFORMIN 500 MG TAB PO SCH (07:19)
[2019-11-10] MEDS: Aspirin 325 MG TAB PO SCH (07:19)
[2019-11-10] MEDS: Enoxaparin Sodium 30 MG/0.3 ML SYRINGE SC SCH (08:44)
[2019-11-10] MEDS: Artificial Tear Sol 15 ML BOT EA EYE SCH ×2 (08:45→21:02)
[2019-11-10] MEDS: Alogliptin 6.25 MG TAB PO SCH (08:46)
[2019-11-10] MEDS: Amlodipine 5 MG TAB PO SCH (08:46)
[2019-11-10] MEDS: Multivit, Therapeutic 1 TAB PO SCH (08:46)
[2019-11-10] MEDS: Furosemide 20 MG TAB PO SCH (08:47)
[2019-11-10] MEDS: Cyanocobalamin (Vitamin B-12) 1,000 MCG TAB PO SCH (08:47)
[2019-11-10] MEDS: Cyclobenzaprine 10 MG TAB PO SCH ×3 (08:47→21:00)
[2019-11-10] MEDS: Gabapentin 100 MG CAP PO SCH (08:47)
[2019-11-10] MEDS: Lidocaine 5% Patch TD SCH (10:27)
[2019-11-10] MEDS: Acetaminophen 325 MG TAB PO PRN (13:36)
[2019-11-10] MEDS: Simvastatin 20 MG TAB PO SCH (21:01)
[2019-11-10] MEDS: Gabapentin 300 MG CAP PO SCH (21:01)
[2019-11-10] MEDS: Lidocaine Patch Removal 1 EACH TOP SCH (21:02)
[2019-11-10] MEDS: Meloxicam 7.5 MG TAB PO SCH (21:02)
[2019-11-11] MEDS: Lidocaine 5% Patch TD SCH (08:14)
[2019-11-11] MEDS: Senokot S 8.6-50 MG TAB PO PRN (08:15)
[2019-11-11] MEDS: Aspirin 325 MG TAB PO SCH (08:16)
[2019-11-11] MEDS: Furosemide 20 MG TAB PO SCH (08:16)
[2019-11-11] MEDS: Cyanocobalamin (Vitamin B-12) 1,000 MCG TAB PO SCH (08:16)
[2019-11-11] MEDS: metFORMIN 500 MG TAB PO SCH (08:16)
[2019-11-11] MEDS: Enoxaparin Sodium 30 MG/0.3 ML SYRINGE SC SCH (08:16)
[2019-11-11] MEDS: Gabapentin 300 MG CAP PO SCH ×2 (08:16→20:12)
[2019-11-11] MEDS: Alogliptin 6.25 MG TAB PO SCH (08:17)
[2019-11-11] MEDS: Multivit, Therapeutic 1 TAB PO SCH (08:17)
[2019-11-11] MEDS: traMADol HCl 50 MG TAB PO PRN ×2 (08:17→17:09)
[2019-11-11] MEDS: Cyclobenzaprine 10 MG TAB PO SCH ×3 (08:17→20:12)
[2019-11-11] MEDS: Amlodipine 5 MG TAB PO SCH (08:19)
[2019-11-11] MEDS: Artificial Tear Sol 15 ML BOT EA EYE SCH ×2 (08:19→20:14)
[2019-11-11] MEDS: Lidocaine Patch Removal 1 EACH TOP SCH (19:26)
[2019-11-11] MEDS: Meloxicam 7.5 MG TAB PO SCH (20:12)
[2019-11-11] MEDS: Simvastatin 20 MG TAB PO SCH (20:13)
[2019-11-12] MEDS: traMADol HCl 50 MG TAB PO PRN ×3 (00:29→19:43)
[2019-11-12] MEDS: Enoxaparin Sodium 30 MG/0.3 ML SYRINGE SC SCH (08:27)
[2019-11-12] MEDS: metFORMIN 500 MG TAB PO SCH (08:27)
[2019-11-12] MEDS: Gabapentin 300 MG CAP PO SCH ×2 (08:27→20:52)
[2019-11-12] MEDS: Amlodipine 5 MG TAB PO SCH (08:27)
[2019-11-12] MEDS: Lidocaine 5% Patch TD SCH ×2 (08:27→21:37)
[2019-11-12] MEDS: Multivit, Therapeutic 1 TAB PO SCH (08:27)
[2019-11-12] MEDS: Alogliptin 6.25 MG TAB PO SCH (08:27)
[2019-11-12] MEDS: Furosemide 20 MG TAB PO SCH (08:27)
[2019-11-12] MEDS: Senokot S 8.6-50 MG TAB PO PRN (08:28)
[2019-11-12] MEDS: Aspirin 325 MG TAB PO SCH (08:28)
[2019-11-12] MEDS: Cyanocobalamin (Vitamin B-12) 1,000 MCG TAB PO SCH (08:28)
[2019-11-12] MEDS: Cyclobenzaprine 10 MG TAB PO SCH ×3 (08:28→20:52)
[2019-11-12] MEDS: Artificial Tear Sol 15 ML BOT EA EYE SCH ×2 (08:30→20:53)
[2019-11-12] MEDS: Acetaminophen 325 MG TAB PO PRN (13:25)
[2019-11-12] MEDS: Polyethylene Glycol 3350 17 GM Packet PO PRN (19:45)
[2019-11-12] MEDS: Meloxicam 7.5 MG TAB PO SCH (20:52)
[2019-11-12] MEDS: Simvastatin 20 MG TAB PO SCH (20:53)
[2019-11-13] MEDS: traMADol HCl 50 MG TAB PO PRN ×3 (05:32→19:47)
[2019-11-13] MEDS: Enoxaparin Sodium 30 MG/0.3 ML SYRINGE SC SCH (09:20)
[2019-11-13] MEDS: Cyanocobalamin (Vitamin B-12) 1,000 MCG TAB PO SCH (09:20)
[2019-11-13] MEDS: Alogliptin 6.25 MG TAB PO SCH (09:20)
[2019-11-13] MEDS: Aspirin 325 MG TAB PO SCH (09:20)
[2019-11-13] MEDS: Gabapentin 300 MG CAP PO SCH ×2 (09:20→21:04)
[2019-11-13] MEDS: Amlodipine 5 MG TAB PO SCH (09:21)
[2019-11-13] MEDS: Multivit, Therapeutic 1 TAB PO SCH (09:21)
[2019-11-13] MEDS: Furosemide 20 MG TAB PO SCH (09:21)
[2019-11-13] MEDS: Cyclobenzaprine 10 MG TAB PO SCH ×3 (09:21→21:04)
[2019-11-13] MEDS: metFORMIN 500 MG TAB PO SCH (09:21)
[2019-11-13] MEDS: Artificial Tear Sol 15 ML BOT EA EYE SCH ×2 (09:22→21:05)
[2019-11-13] MEDS: Lidocaine Patch Removal TOP SCH (09:22)
[2019-11-13] MEDS: Simvastatin 20 MG TAB PO SCH (21:04)
[2019-11-13] MEDS: Meloxicam 7.5 MG TAB PO SCH (21:04)
[2019-11-13] MEDS: Lidocaine 5% Patch TD SCH (21:05)
[2019-11-14] MEDS: Multivit, Therapeutic 1 TAB PO SCH (08:26)
[2019-11-14] MEDS: Aspirin 325 MG TAB PO SCH (08:26)
[2019-11-14] MEDS: Artificial Tear Sol 15 ML BOT EA EYE SCH ×2 (08:26→20:49)
[2019-11-14] MEDS: Furosemide 20 MG TAB PO SCH (08:26)
[2019-11-14] MEDS: Gabapentin 300 MG CAP PO SCH ×2 (08:26→20:49)
[2019-11-14] MEDS: Cyclobenzaprine 10 MG TAB PO SCH ×3 (08:26→20:48)
[2019-11-14] MEDS: Cyanocobalamin (Vitamin B-12) 1,000 MCG TAB PO SCH (08:26)
[2019-11-14] MEDS: Alogliptin 6.25 MG TAB PO SCH (08:26)
[2019-11-14] MEDS: metFORMIN 500 MG TAB PO SCH (08:26)
[2019-11-14] MEDS: Amlodipine 5 MG TAB PO SCH (08:26)
[2019-11-14] MEDS: Enoxaparin Sodium 30 MG/0.3 ML SYRINGE SC SCH (08:27)
[2019-11-14] MEDS: traMADol HCl 50 MG TAB PO PRN ×2 (08:27→16:10)
[2019-11-14] MEDS: Lidocaine Patch Removal TOP SCH (09:27)
[2019-11-14] MEDS: Meloxicam 7.5 MG TAB PO SCH (20:48)
[2019-11-14] MEDS: Simvastatin 20 MG TAB PO SCH (20:48)
[2019-11-14] MEDS: Lidocaine 5% Patch TD SCH (20:52)
[2019-11-15] MEDS: traMADol HCl 50 MG TAB PO PRN ×3 (00:13→19:01)
[2019-11-15] MEDS: Cyclobenzaprine 10 MG TAB PO SCH ×3 (07:58→20:58)
[2019-11-15] MEDS: metFORMIN 500 MG TAB PO SCH (07:58)
[2019-11-15] MEDS: Alogliptin 6.25 MG TAB PO SCH (07:58)
[2019-11-15] MEDS: Aspirin 325 MG TAB PO SCH (07:58)
[2019-11-15] MEDS: Amlodipine 5 MG TAB PO SCH (07:58)
[2019-11-15] MEDS: Furosemide 20 MG TAB PO SCH (07:58)
[2019-11-15] MEDS: Cyanocobalamin (Vitamin B-12) 1,000 MCG TAB PO SCH (07:59)
[2019-11-15] MEDS: Artificial Tear Sol 15 ML BOT EA EYE SCH ×2 (07:59→21:03)
[2019-11-15] MEDS: Multivit, Therapeutic 1 TAB PO SCH (07:59)
[2019-11-15] MEDS: Enoxaparin Sodium 30 MG/0.3 ML SYRINGE SC SCH (07:59)
[2019-11-15] MEDS: Gabapentin 300 MG CAP PO SCH ×2 (07:59→20:59)
[2019-11-15] MEDS: Lidocaine 5% Patch TD SCH (07:59)
[2019-11-15] MEDS: Senokot S 8.6-50 MG TAB PO PRN (10:20)
[2019-11-15] MEDS: Meloxicam 7.5 MG TAB PO SCH (20:58)
[2019-11-15] MEDS: Simvastatin 20 MG TAB PO SCH (20:59)
[2019-11-15] MEDS ORDERED: Lidocaine Patch Removal TOP SCH (21:00)
[2019-11-16] MEDS: traMADol HCl 50 MG TAB PO PRN ×2 (06:07→12:34)
[2019-11-16] MEDS: Enoxaparin Sodium 30 MG/0.3 ML SYRINGE SC SCH (08:32)
[2019-11-16] MEDS: Amlodipine 5 MG TAB PO SCH (08:33)
[2019-11-16] MEDS: Furosemide 20 MG TAB PO SCH (08:33)
[2019-11-16] MEDS: Aspirin 325 MG TAB PO SCH (08:33)
[2019-11-16] MEDS: Lidocaine 5% Patch TD SCH (08:33)
[2019-11-16] MEDS: Alogliptin 6.25 MG TAB PO SCH (08:33)
[2019-11-16] MEDS: Cyanocobalamin (Vitamin B-12) 1,000 MCG TAB PO SCH (08:33)
[2019-11-16] MEDS: Cyclobenzaprine 10 MG TAB PO SCH (08:33)
[2019-11-16] MEDS: Multivit, Therapeutic 1 TAB PO SCH (08:34)
[2019-11-16] MEDS: metFORMIN 500 MG TAB PO SCH (08:34)
[2019-11-16] MEDS: Gabapentin 300 MG CAP PO SCH (08:34)
[2019-11-16] MEDS: Artificial Tear Sol 15 ML BOT EA EYE SCH (08:35)
[2019-11-16 08:38] VITALS: BP 141/67
[2019-11-16 09:37] VITALS: TEMP 97.1
[2019-11-16 11:41] VITALS: BMI 42.0
--- NOTE | 2019-11-17 03:06 | DIS ---
DATE OF ADMISSION: 10/23/2019 DATE OF DISCHARGE: 11/16/2019 DISCHARGE DISPOSITION: Home with son-in-law. DISCHARGE INSTRUCTIONS: Follow up with neurosurgeon, Dr. Thomason, on November 29. Repeat MRI lumbosacral spine prior to appointment. Follow up with PCP in three weeks. Discharge Diagnosis: 1. Gain instbility, improving 2. Intractable back pain due to degenerative LS disease, improving 3. Neuropathic pain 4. DM Type 2 DISCHARGE MEDICATIONS: 1. Amlodipine 10 mg daily. 2. Alogliptin 12.5 daily. 3. Aspirin 325 daily. 4. Vitamin B12 of 1000 daily. 5. Flexeril 10 mg t.i.d. 6. Artificial Tears b.i.d. 7. Tramadol 50 q.6 p.r.n. 8. Lasix 20 daily. 9. Neurontin 300 mg b.i.d. 10. Lidocaine patch daily. 11. Mobic 15 at bedtime. 12. Glucophage 500 p.o. daily. 13. Multivitamin one tab daily. 14. Simvastatin 10 at bedtime. BRIEF HOSPITAL COURSE: Ms. Vogt is a 69-year-old female with a history of progressive degenerative lumbosacral spine disease. The patient was admitted to [facility] in [place] on October 14 due to persistent lower back pain. She was seen by pain specialist, Dr. Cody, and received epidural steroid injection. The patient during hospitalization was unable to see neurosurgeon, Dr. Thomason, and she was subsequently transferred to [facility] for physical therapy prior to discharge back to home as she was physically deconditioned and her pain was still not under control. She had gait instability and decreased ambulation power. During hospitalization here, the patient's medication had to be adjusted. Initially, she was put on hydrocodone, which helped her pain, but due to codeine allergy, this was changed back to tramadol and lidocaine patch The patient was able to participate in physical therapy. She had an appointment with pain specialist again, Dr. Cody on November 14 and he did a repeat spinal injection and recommended the patient to have repeat MRI and follow up with neurosurgeon. The patient does have an appointment with Dr. Thomason on the 29 of November. Throughout hospitalization, the patient progressively improved with ambulation, even though she continues to complain of pain. By day of discharge, she was able to ambulate 150 feet and stand more upright and not leaning on the elbow while walking compared to when she first presented to the facility. The patient was discharged home in a stable condition with her son-in-law and advised to follow up with a PCP in three weeks and follow up with Dr. Cody as recommended. Job ID: [id number] MTDD
== END 2019-11-16 13:45 | disposition home or self-care (01) | DRG 552 ==
LOC: MADMS 16:58 → UNDOADMIN 16:58
PROVIDERS: ADMIT Family Medicine; ATTEND Family Medicine
DX: M51.36 Other intervertebral disc degeneration, lumbar region (principal); Z68.41 Body mass index [BMI] 40.0-44.9, adult; I10 Essential (primary) hypertension; E11.9 Type 2 diabetes mellitus without complications; R53.81 Other malaise; R26.89 Other abnormalities of gait and mobility; E66.9 Obesity, unspecified; E78.5 Hyperlipidemia, unspecified; M54.5 Low back pain; G89.29 Other chronic pain; E11.42 Type 2 diabetes mellitus with diabetic polyneuropathy; Z90.49 Acquired absence of other specified parts of digestive tract; Z90.710 Acquired absence of both cervix and uterus; Z79.82 Long term (current) use of aspirin; Z79.84 Long term (current) use of oral hypoglycemic drugs; Z88.5 Allergy status to narcotic agent; M43.16 Spondylolisthesis, lumbar region; M47.817 Spondylosis without myelopathy or radiculopathy, lumbosacral region; M96.1 Postlaminectomy syndrome, not elsewhere classified; M47.816 Spondylosis without myelopathy or radiculopathy, lumbar region
CPT/HCPCS: 36416; J1650

== ENCOUNTER 2020-04-01 16:10 | Inpatient (IN) | payer MEDICARE ==
[2020-04-01] MEDS ORDERED: HYDROcodone/Acetaminophen 5/325 mg Tablet PO SCH (20:30)
[2020-04-01] MEDS ORDERED: Dextrose 50% Abboject 50 ML SYRINGE IVP PRN (21:33)
[2020-04-01] MEDS ORDERED: HumaLOG 300 UNITS/3 ML VIAL SC PRN (21:33)
[2020-04-01] MEDS ORDERED: Dextrose 5% in Water 1,000 ML IV PRN (21:33)
[2020-04-01] MEDS: Gabapentin 300 MG CAP PO SCH (21:54)
[2020-04-01] MEDS: Simvastatin 5 MG TAB PO SCH (21:54)
[2020-04-01] MEDS: Artificial Tear Sol 15 ML BOT EA EYE SCH (21:54)
[2020-04-01] MEDS: Meloxicam 7.5 MG TAB PO SCH (21:54)
[2020-04-01] MEDS: traMADol HCl 50 MG TAB PO PRN (21:57)
[2020-04-01] MEDS ORDERED: Acetaminophen 325 MG TAB PO PRN ×2 (22:14→22:15)
[2020-04-02] MEDS: HYDROcodone/Acetaminophen 5/325 mg Tablet PO PRN ×3 (04:30→18:49)
[2020-04-02] MEDS: metFORMIN 500 MG TAB PO SCH (08:00)
[2020-04-02] MEDS: Alogliptin 6.25 MG TAB PO SCH (08:00)
[2020-04-02] MEDS: Gabapentin 300 MG CAP PO SCH ×2 (08:02→21:01)
[2020-04-02] MEDS: Aspirin 325 MG TAB PO SCH (08:02)
[2020-04-02] MEDS: Cyanocobalamin (Vitamin B-12) 1,000 MCG TAB PO SCH (08:02)
[2020-04-02] MEDS: Artificial Tear Sol 15 ML BOT EA EYE SCH ×2 (08:02→21:04)
[2020-04-02] MEDS: Furosemide 20 MG TAB PO SCH (08:02)
[2020-04-02] MEDS: Multivit, Therapeutic 1 TAB PO SCH (08:03)
[2020-04-02] MEDS: traMADol HCl 50 MG TAB PO PRN ×3 (08:03→22:41)
[2020-04-02] MEDS ORDERED: Lisinopril 5 MG TAB PO SCH (09:00)
[2020-04-02] MEDS ORDERED: Amlodipine 5 MG TAB PO SCH (09:00)
[2020-04-02] MEDS ORDERED: Polyethylene Glycol 3350 17 GM Packet PO PRN (11:04)
[2020-04-02] MEDS ORDERED: Docusate 100 MG CAP PO SCH (11:15)
[2020-04-02] MEDS: Meloxicam 7.5 MG TAB PO SCH (21:00)
[2020-04-02] MEDS: Docusate 100 MG CAP PO SCH (21:01)
[2020-04-02] MEDS: Simvastatin 5 MG TAB PO SCH (21:01)
--- NOTE | 2020-04-02 23:20 | HP ---
PRIMARY CARE PHYSICIAN: Nurse practitioner, Elvira Dunlap, in [place]. REASON FOR ADMISSION: For skilled rehabilitation at [facility] status post bilateral L3-L5 revision hemilaminectomy and right-sided diskectomies. HISTORY OF PRESENT ILLNESS: Ms. Vogt is a 69-year-old female, who is very pleasant, who went in for an elective surgery on March 29, 2020. The patient does have a history of chronic back pain. She had a laminectomy that was complicated by postoperative wound cellulitis in 2018. She continued to have chronic back pain. She had monthly epidural injections with pain specialist, Dr. Cody. She had PAVEL in October 2019 and she states her back pain continued to worsen, so she saw a neurosurgeon, Dr. Thomason, who had done a surgery 3 years ago and the disk surgery on March 29, 2020. The patient tolerated the procedure well. Postoperatively, she remained afebrile. During hospitalization in [place], the patient had blood pressure low at 91/56 and her blood pressure medications were held. The patient states overall her lower back pain has improved and she is still in a lot of pain and miserable, but she states her leg feels better compared to before the surgery. The patient is able to ambulate to the restroom and back with a rolling walker and she was participating with physical therapy. The patient had ultrasound of the bilateral lower extremities on the 30 of March and that was negative and the patient was advised to follow up, to be transferred to the swing facility in [place] for skilled rehabilitation prior to going back to her home as she lives alone and would be unable to do her own self therapy or take care of the wound after surgery. The patient prior to discharge was given an LSO brace and subsequently transferred here to [facility]. Upon evaluation of the patient today, she is excited to start physical therapy. She is very determined to get stronger to be able to enjoy the rest of her life. She states she is very optimistic about this. She states she has not had a bowel movement since the day of surgery, Sunday, March 29, 2020. She denies any abdominal pain, any nausea, any vomiting. She states pain medicine is helping with pain. PAST MEDICAL HISTORY: Hypertension, diabetes type 2, obesity, hyperlipidemia, chronic lower back pain, peripheral neuropathy. PAST SURGICAL HISTORY: Laminectomy in 2018, cholecystectomy, and hysterectomy. CODE STATUS: Full code. MEDICATIONS: Amlodipine 10 mg daily, [place] 1 tab q.6 p.r.n. pain, alogliptin 12.5 daily, aspirin 325 daily, Artificial Tears one drop to each eye b.i.d., Tylenol 650 q.6 p.r.n., vitamin B12 at 1000 mcg daily, furosemide 20 daily, gabapentin 300 b.i.d., lisinopril 5 mg daily, meloxicam 15 mg at bedtime, metformin 500 daily, simvastatin 10 mg at bedtime, tramadol 100 p.o. q.6 p.r.n. moderate pain. ALLERGIES: CODEINE. FAMILY HISTORY: Significant for diabetes and coronary artery disease. SOCIAL HISTORY: Patient resides in [facility]. She lives alone. She has a daughter who visits. She denies any tobacco, alcohol or illicit drug use. REVIEW OF SYSTEMS: As noted in H and P, otherwise all other review of systems x14 were negative. PHYSICAL EXAMINATION: VITAL SIGNS: Temperature 98.7, pulse 71, respirations 18, O2 saturation 93% on room air, blood pressure 137/77. GENERAL: The patient is alert, awake, and oriented x3. Very pleasant, lying comfortably in bed. HEENT: Normocephalic, atraumatic. Moist oral mucous membrane. NECK: Supple. No JVD. Trachea midline. No carotid bruit. RESPIRATORY: Bilateral good air entry. No wheezing. No crackles. CARDIOVASCULAR: S1 and S2 positive. Regular rate and rhythm. ABDOMEN: Positive bowel sounds. Mildly distended, nontender. No guarding. No rebound. BACK: Positive tenderness to midthoracic to sacral area, lower back with incision covered in dry blood. Steri Strips in place. Mild surrounding erythema. No sign of drainage or cellulitis or infection. NEUROLOGICAL: Patient is alert, awake, and oriented x3. Moving all extremities. ASSESSMENT: 1. Gait instability. 2. Status post bilateral L3-L5 revision hemilaminectomy and right-sided diskectomy. 3. Hypertension. 4. Diabetes type 2. 5. Peripheral neuropathy. 6. Constipation. The patient is a 69-year-old female, who has been admitted to [facility]. We will consult Physical Therapy to help with gait stability and strengthening. We will consult Occupational Therapy to help with activities of daily living prior to discharge back to her home. We resume all home medications. We will change dressing daily and monitor closely. We will do Accu-Cheks fasting once a day on patient. We will place the patient on a 2000 calorie carb diet. We will resume home medications. We will hold her blood pressure medicines for now due to hypotensive episodes. ESTIMATED LENGTH OF STAY: 3 to 4 weeks. FOLLOWUP: Patient is to follow up with neurosurgeon as an outpatient. Job ID: [id number] MTDD
[2020-04-03] MEDS: HYDROcodone/Acetaminophen 5/325 mg Tablet PO PRN ×3 (05:03→17:53)
[2020-04-03] MEDS: metFORMIN 500 MG TAB PO SCH (07:59)
[2020-04-03] MEDS: Docusate 100 MG CAP PO SCH ×2 (08:00→20:59)
[2020-04-03] MEDS: Gabapentin 300 MG CAP PO SCH ×2 (08:00→20:59)
[2020-04-03] MEDS: Multivit, Therapeutic 1 TAB PO SCH (08:00)
[2020-04-03] MEDS: Bisacodyl 10 MG SUPP PR PRN (08:00)
[2020-04-03] MEDS: Alogliptin 6.25 MG TAB PO SCH (08:00)
[2020-04-03] MEDS: Cyanocobalamin (Vitamin B-12) 1,000 MCG TAB PO SCH (08:00)
[2020-04-03] MEDS: Furosemide 20 MG TAB PO SCH (08:00)
[2020-04-03] MEDS: Aspirin 325 MG TAB PO SCH (08:00)
[2020-04-03] MEDS: Artificial Tear Sol 15 ML BOT EA EYE SCH ×2 (08:43→20:58)
[2020-04-03] MEDS: traMADol HCl 50 MG TAB PO PRN (20:20)
[2020-04-03] MEDS: Meloxicam 7.5 MG TAB PO SCH (20:59)
[2020-04-03] MEDS: Simvastatin 5 MG TAB PO SCH (21:00)
[2020-04-04] MEDS: HYDROcodone/Acetaminophen 5/325 mg Tablet PO PRN ×4 (01:38→21:08)
[2020-04-04] MEDS: traMADol HCl 50 MG TAB PO PRN (05:56)
[2020-04-04] MEDS: Multivit, Therapeutic 1 TAB PO SCH (07:59)
[2020-04-04] MEDS: Aspirin 325 MG TAB PO SCH (07:59)
[2020-04-04] MEDS: metFORMIN 500 MG TAB PO SCH (07:59)
[2020-04-04] MEDS: Furosemide 20 MG TAB PO SCH (07:59)
[2020-04-04] MEDS: Alogliptin 6.25 MG TAB PO SCH (07:59)
[2020-04-04] MEDS: Cyanocobalamin (Vitamin B-12) 1,000 MCG TAB PO SCH (08:00)
[2020-04-04] MEDS: Docusate 100 MG CAP PO SCH ×2 (08:00→21:08)
[2020-04-04] MEDS: Gabapentin 300 MG CAP PO SCH ×2 (08:00→21:08)
[2020-04-04] MEDS: Artificial Tear Sol 15 ML BOT EA EYE SCH ×2 (08:07→21:15)
[2020-04-04] MEDS: Meloxicam 7.5 MG TAB PO SCH (21:07)
[2020-04-04] MEDS: Simvastatin 5 MG TAB PO SCH (21:07)
[2020-04-04] MEDS: Cyclobenzaprine 10 MG TAB PO SCH (21:07)
[2020-04-05] MEDS: traMADol HCl 50 MG TAB PO PRN ×2 (01:05→08:09)
[2020-04-05] MEDS: Furosemide 20 MG TAB PO SCH (08:12)
[2020-04-05] MEDS: Gabapentin 300 MG CAP PO SCH ×2 (08:12→21:21)
[2020-04-05] MEDS: Aspirin 325 MG TAB PO SCH (08:13)
[2020-04-05] MEDS: Multivit, Therapeutic 1 TAB PO SCH (08:13)
[2020-04-05] MEDS: metFORMIN 500 MG TAB PO SCH (08:14)
[2020-04-05] MEDS: Alogliptin 6.25 MG TAB PO SCH (08:14)
[2020-04-05] MEDS: Docusate 100 MG CAP PO SCH ×2 (08:14→21:21)
[2020-04-05] MEDS: Cyanocobalamin (Vitamin B-12) 1,000 MCG TAB PO SCH (08:14)
[2020-04-05] MEDS: Artificial Tear Sol 15 ML BOT EA EYE SCH ×2 (08:15→21:21)
[2020-04-05] MEDS: HYDROcodone/Acetaminophen 5/325 mg Tablet PO PRN ×2 (15:21→21:25)
[2020-04-05] MEDS: Meloxicam 7.5 MG TAB PO SCH (21:21)
[2020-04-05] MEDS: Cyclobenzaprine 10 MG TAB PO SCH (21:21)
[2020-04-05] MEDS: Simvastatin 5 MG TAB PO SCH (21:22)
[2020-04-06] MEDS: HYDROcodone/Acetaminophen 5/325 mg Tablet PO PRN ×3 (03:50→21:25)
[2020-04-06] MEDS: Lisinopril 5 MG TAB PO SCH (09:29)
[2020-04-06] MEDS: Furosemide 20 MG TAB PO SCH (09:29)
[2020-04-06] MEDS: Alogliptin 6.25 MG TAB PO SCH (09:29)
[2020-04-06] MEDS: metFORMIN 500 MG TAB PO SCH (09:29)
[2020-04-06] MEDS: Gabapentin 300 MG CAP PO SCH ×2 (09:29→21:24)
[2020-04-06] MEDS: Aspirin 325 MG TAB PO SCH (09:29)
[2020-04-06] MEDS: Multivit, Therapeutic 1 TAB PO SCH (09:29)
[2020-04-06] MEDS: Cyanocobalamin (Vitamin B-12) 1,000 MCG TAB PO SCH (09:29)
[2020-04-06] MEDS: Docusate 100 MG CAP PO SCH ×2 (09:29→21:27)
[2020-04-06] MEDS: Artificial Tear Sol 15 ML BOT EA EYE SCH ×2 (09:30→21:22)
[2020-04-06] MEDS: Bisacodyl 10 MG SUPP PR PRN (09:37)
[2020-04-06] MEDS: Cyclobenzaprine 10 MG TAB PO SCH (21:22)
[2020-04-06] MEDS: Meloxicam 7.5 MG TAB PO SCH (21:24)
[2020-04-06] MEDS: Simvastatin 5 MG TAB PO SCH (21:25)
[2020-04-07] MEDS: HYDROcodone/Acetaminophen 5/325 mg Tablet PO PRN ×3 (02:55→21:22)
[2020-04-07] MEDS: Alogliptin 6.25 MG TAB PO SCH (08:13)
[2020-04-07] MEDS: metFORMIN 500 MG TAB PO SCH (08:13)
[2020-04-07] MEDS: Cyanocobalamin (Vitamin B-12) 1,000 MCG TAB PO SCH (08:14)
[2020-04-07] MEDS: Aspirin 325 MG TAB PO SCH (08:14)
[2020-04-07] MEDS: Artificial Tear Sol 15 ML BOT EA EYE SCH ×2 (08:14→21:28)
[2020-04-07] MEDS: Multivit, Therapeutic 1 TAB PO SCH (08:14)
[2020-04-07] MEDS: Lisinopril 5 MG TAB PO SCH (08:15)
[2020-04-07] MEDS: Gabapentin 300 MG CAP PO SCH ×2 (08:15→21:25)
[2020-04-07] MEDS: Furosemide 20 MG TAB PO SCH (08:16)
[2020-04-07] MEDS: Docusate 100 MG CAP PO SCH ×2 (08:16→21:24)
[2020-04-07] MEDS: traMADol HCl 50 MG TAB PO PRN (08:17)
[2020-04-07] MEDS: Cyclobenzaprine 10 MG TAB PO SCH (21:24)
[2020-04-07] MEDS: Meloxicam 7.5 MG TAB PO SCH (21:24)
[2020-04-07] MEDS: Simvastatin 5 MG TAB PO SCH (21:25)
[2020-04-08] MEDS: traMADol HCl 50 MG TAB PO PRN ×2 (02:46→23:19)
[2020-04-08] MEDS: HYDROcodone/Acetaminophen 5/325 mg Tablet PO PRN ×3 (05:29→21:12)
[2020-04-08] MEDS: Aspirin 325 MG TAB PO SCH (08:03)
[2020-04-08] MEDS: Docusate 100 MG CAP PO SCH ×2 (08:03→21:11)
[2020-04-08] MEDS: Alogliptin 6.25 MG TAB PO SCH (08:03)
[2020-04-08] MEDS: Multivit, Therapeutic 1 TAB PO SCH (08:04)
[2020-04-08] MEDS: Gabapentin 300 MG CAP PO SCH ×2 (08:04→21:12)
[2020-04-08] MEDS: Cyanocobalamin (Vitamin B-12) 1,000 MCG TAB PO SCH (08:04)
[2020-04-08] MEDS: Furosemide 20 MG TAB PO SCH (08:04)
[2020-04-08] MEDS: metFORMIN 500 MG TAB PO SCH (08:04)
[2020-04-08] MEDS: Lisinopril 5 MG TAB PO SCH (08:04)
[2020-04-08] MEDS: Artificial Tear Sol 15 ML BOT EA EYE SCH ×2 (10:02→21:11)
[2020-04-08] MEDS: Cyclobenzaprine 10 MG TAB PO SCH (21:11)
[2020-04-08] MEDS: Meloxicam 7.5 MG TAB PO SCH (21:12)
[2020-04-08] MEDS: Simvastatin 5 MG TAB PO SCH (21:12)
[2020-04-09] MEDS: metFORMIN 500 MG TAB PO SCH (08:00)
[2020-04-09] MEDS: Lisinopril 5 MG TAB PO SCH (08:00)
[2020-04-09] MEDS: Aspirin 325 MG TAB PO SCH (08:00)
[2020-04-09] MEDS: Docusate 100 MG CAP PO SCH ×2 (08:01→20:29)
[2020-04-09] MEDS: Gabapentin 300 MG CAP PO SCH ×2 (08:01→20:29)
[2020-04-09] MEDS: Multivit, Therapeutic 1 TAB PO SCH (08:01)
[2020-04-09] MEDS: Alogliptin 6.25 MG TAB PO SCH (08:01)
[2020-04-09] MEDS: Artificial Tear Sol 15 ML BOT EA EYE SCH ×2 (08:01→20:28)
[2020-04-09] MEDS: Cyanocobalamin (Vitamin B-12) 1,000 MCG TAB PO SCH (08:01)
[2020-04-09] MEDS: Furosemide 20 MG TAB PO SCH (08:01)
[2020-04-09] MEDS: HYDROcodone/Acetaminophen 5/325 mg Tablet PO PRN ×3 (08:02→21:12)
[2020-04-09] MEDS: traMADol HCl 50 MG TAB PO PRN (17:49)
[2020-04-09] MEDS: Cyclobenzaprine 10 MG TAB PO SCH (20:29)
[2020-04-09] MEDS: Meloxicam 7.5 MG TAB PO SCH (20:29)
[2020-04-09] MEDS: Simvastatin 5 MG TAB PO SCH (20:30)
[2020-04-10] MEDS: HYDROcodone/Acetaminophen 5/325 mg Tablet PO PRN ×3 (05:24→20:30)
[2020-04-10] MEDS: Alogliptin 6.25 MG TAB PO SCH (08:12)
[2020-04-10] MEDS: Docusate 100 MG CAP PO SCH ×2 (08:12→20:24)
[2020-04-10] MEDS: metFORMIN 500 MG TAB PO SCH (08:12)
[2020-04-10] MEDS: Cyanocobalamin (Vitamin B-12) 1,000 MCG TAB PO SCH (08:13)
[2020-04-10] MEDS: Gabapentin 300 MG CAP PO SCH ×2 (08:13→20:24)
[2020-04-10] MEDS: Aspirin 325 MG TAB PO SCH (08:13)
[2020-04-10] MEDS: Lisinopril 5 MG TAB PO SCH (08:13)
[2020-04-10] MEDS: Multivit, Therapeutic 1 TAB PO SCH (08:13)
[2020-04-10] MEDS: Furosemide 20 MG TAB PO SCH (08:14)
[2020-04-10] MEDS: Artificial Tear Sol 15 ML BOT EA EYE SCH ×2 (08:15→21:08)
[2020-04-10] MEDS: traMADol HCl 50 MG TAB PO PRN (08:27)
[2020-04-10] MEDS: Cyclobenzaprine 10 MG TAB PO SCH (20:23)
[2020-04-10] MEDS: Simvastatin 5 MG TAB PO SCH (20:23)
[2020-04-10] MEDS: Meloxicam 7.5 MG TAB PO SCH (20:24)
[2020-04-11] MEDS: HYDROcodone/Acetaminophen 5/325 mg Tablet PO PRN ×3 (05:12→20:15)
[2020-04-11] MEDS: Aspirin 325 MG TAB PO SCH (08:51)
[2020-04-11] MEDS: Docusate 100 MG CAP PO SCH ×2 (08:51→20:17)
[2020-04-11] MEDS: traMADol HCl 50 MG TAB PO PRN (08:51)
[2020-04-11] MEDS: Cyanocobalamin (Vitamin B-12) 1,000 MCG TAB PO SCH (08:51)
[2020-04-11] MEDS: Lisinopril 5 MG TAB PO SCH (08:51)
[2020-04-11] MEDS: metFORMIN 500 MG TAB PO SCH (08:52)
[2020-04-11] MEDS: Gabapentin 300 MG CAP PO SCH ×2 (08:52→20:14)
[2020-04-11] MEDS: Artificial Tear Sol 15 ML BOT EA EYE SCH ×2 (08:52→20:12)
[2020-04-11] MEDS: Furosemide 20 MG TAB PO SCH (08:52)
[2020-04-11] MEDS: Multivit, Therapeutic 1 TAB PO SCH (08:52)
[2020-04-11] MEDS: Alogliptin 6.25 MG TAB PO SCH (08:52)
[2020-04-11 12:55] VITALS: BMI 40.6
[2020-04-11] MEDS: Cyclobenzaprine 10 MG TAB PO SCH ×2 (16:06→21:22)
[2020-04-11] MEDS ORDERED: Cyclobenzaprine 10 MG TAB PO SCH (16:15)
[2020-04-11] MEDS: Meloxicam 7.5 MG TAB PO SCH (20:14)
[2020-04-11] MEDS: Simvastatin 5 MG TAB PO SCH (20:15)
[2020-04-12] MEDS: HYDROcodone/Acetaminophen 5/325 mg Tablet PO PRN ×2 (04:55→21:30)
[2020-04-12] MEDS: Docusate 100 MG CAP PO SCH ×2 (08:53→20:22)
[2020-04-12] MEDS: metFORMIN 500 MG TAB PO SCH (08:53)
[2020-04-12] MEDS: Cyclobenzaprine 10 MG TAB PO SCH ×2 (08:53→20:22)
[2020-04-12] MEDS: Furosemide 20 MG TAB PO SCH (08:54)
[2020-04-12] MEDS: Multivit, Therapeutic 1 TAB PO SCH (08:54)
[2020-04-12] MEDS: Cyanocobalamin (Vitamin B-12) 1,000 MCG TAB PO SCH (08:54)
[2020-04-12] MEDS: Alogliptin 6.25 MG TAB PO SCH (08:54)
[2020-04-12] MEDS: Gabapentin 300 MG CAP PO SCH ×2 (08:54→20:22)
[2020-04-12] MEDS: Aspirin 325 MG TAB PO SCH (08:54)
[2020-04-12] MEDS: traMADol HCl 50 MG TAB PO PRN (08:54)
[2020-04-12] MEDS: Artificial Tear Sol 15 ML BOT EA EYE SCH ×2 (08:55→20:21)
[2020-04-12] MEDS: Lisinopril 5 MG TAB PO SCH (08:58)
[2020-04-12] MEDS: Meloxicam 7.5 MG TAB PO SCH (20:23)
[2020-04-12] MEDS: Simvastatin 5 MG TAB PO SCH (20:23)
[2020-04-13] MEDS: HYDROcodone/Acetaminophen 5/325 mg Tablet PO PRN ×2 (05:40→15:24)
[2020-04-13] MEDS: metFORMIN 500 MG TAB PO SCH (07:48)
[2020-04-13] MEDS: Alogliptin 6.25 MG TAB PO SCH (08:41)
[2020-04-13] MEDS: Artificial Tear Sol 15 ML BOT EA EYE SCH ×2 (08:41→20:00)
[2020-04-13] MEDS: Aspirin 325 MG TAB PO SCH (08:42)
[2020-04-13] MEDS: Cyanocobalamin (Vitamin B-12) 1,000 MCG TAB PO SCH (08:43)
[2020-04-13] MEDS: Lisinopril 5 MG TAB PO SCH (08:45)
[2020-04-13] MEDS: Multivit, Therapeutic 1 TAB PO SCH (08:46)
[2020-04-13] MEDS: Gabapentin 300 MG CAP PO SCH ×2 (08:46→20:01)
[2020-04-13] MEDS: Docusate 100 MG CAP PO SCH ×2 (08:46→20:01)
[2020-04-13] MEDS: Furosemide 20 MG TAB PO SCH (08:47)
[2020-04-13] MEDS: Cyclobenzaprine 10 MG TAB PO SCH ×2 (09:00→20:01)
[2020-04-13] MEDS: Simvastatin 5 MG TAB PO SCH (20:01)
[2020-04-13] MEDS: Meloxicam 7.5 MG TAB PO SCH (20:01)
[2020-04-13] MEDS: traMADol HCl 50 MG TAB PO PRN (20:05)
[2020-04-14] MEDS: Cyanocobalamin (Vitamin B-12) 1,000 MCG TAB PO SCH (08:33)
[2020-04-14] MEDS: Alogliptin 6.25 MG TAB PO SCH (08:33)
[2020-04-14] MEDS: Gabapentin 300 MG CAP PO SCH ×2 (08:33→20:19)
[2020-04-14] MEDS: Furosemide 20 MG TAB PO SCH (08:33)
[2020-04-14] MEDS: Cyclobenzaprine 10 MG TAB PO SCH ×2 (08:33→20:19)
[2020-04-14] MEDS: Lisinopril 5 MG TAB PO SCH (08:34)
[2020-04-14] MEDS: metFORMIN 500 MG TAB PO SCH (08:34)
[2020-04-14] MEDS: Multivit, Therapeutic 1 TAB PO SCH (08:34)
[2020-04-14] MEDS: HYDROcodone/Acetaminophen 5/325 mg Tablet PO PRN (08:34)
[2020-04-14] MEDS: Aspirin 325 MG TAB PO SCH (08:34)
[2020-04-14] MEDS: Docusate 100 MG CAP PO SCH ×2 (08:34→20:19)
[2020-04-14] MEDS: Artificial Tear Sol 15 ML BOT EA EYE SCH ×2 (08:35→20:20)
[2020-04-14] MEDS: traMADol HCl 50 MG TAB PO PRN ×2 (13:34→22:02)
[2020-04-14] MEDS: Meloxicam 7.5 MG TAB PO SCH (20:19)
[2020-04-14] MEDS: Simvastatin 5 MG TAB PO SCH (20:19)
[2020-04-15] MEDS: HYDROcodone/Acetaminophen 5/325 mg Tablet PO PRN ×2 (05:06→17:42)
[2020-04-15] MEDS: Gabapentin 300 MG CAP PO SCH ×2 (08:02→21:09)
[2020-04-15] MEDS: Multivit, Therapeutic 1 TAB PO SCH (08:02)
[2020-04-15] MEDS: Docusate 100 MG CAP PO SCH ×2 (08:02→21:09)
[2020-04-15] MEDS: metFORMIN 500 MG TAB PO SCH (08:02)
[2020-04-15] MEDS: Lisinopril 5 MG TAB PO SCH (08:02)
[2020-04-15] MEDS: Aspirin 325 MG TAB PO SCH (08:02)
[2020-04-15] MEDS: Furosemide 20 MG TAB PO SCH (08:02)
[2020-04-15] MEDS: Alogliptin 6.25 MG TAB PO SCH (08:03)
[2020-04-15] MEDS: Cyanocobalamin (Vitamin B-12) 1,000 MCG TAB PO SCH (08:03)
[2020-04-15] MEDS: Cyclobenzaprine 10 MG TAB PO SCH ×2 (08:03→21:10)
[2020-04-15] MEDS: Artificial Tear Sol 15 ML BOT EA EYE SCH ×2 (08:06→21:10)
[2020-04-15] MEDS: Simvastatin 5 MG TAB PO SCH (21:09)
[2020-04-15] MEDS: Meloxicam 7.5 MG TAB PO SCH (21:09)
[2020-04-15] MEDS: traMADol HCl 50 MG TAB PO PRN (21:10)
[2020-04-16] MEDS: HYDROcodone/Acetaminophen 5/325 mg Tablet PO PRN ×3 (05:37→21:16)
[2020-04-16] MEDS: Lisinopril 5 MG TAB PO SCH (08:02)
[2020-04-16] MEDS: Docusate 100 MG CAP PO SCH ×2 (08:02→21:17)
[2020-04-16] MEDS: metFORMIN 500 MG TAB PO SCH (08:02)
[2020-04-16] MEDS: Aspirin 325 MG TAB PO SCH (08:02)
[2020-04-16] MEDS: Gabapentin 300 MG CAP PO SCH ×2 (08:02→21:17)
[2020-04-16] MEDS: Multivit, Therapeutic 1 TAB PO SCH (08:02)
[2020-04-16] MEDS: Cyanocobalamin (Vitamin B-12) 1,000 MCG TAB PO SCH (08:02)
[2020-04-16] MEDS: Alogliptin 6.25 MG TAB PO SCH (08:02)
[2020-04-16] MEDS: Cyclobenzaprine 10 MG TAB PO SCH ×3 (08:02→21:17)
[2020-04-16] MEDS: Artificial Tear Sol 15 ML BOT EA EYE SCH ×2 (08:02→21:00)
[2020-04-16] MEDS: Furosemide 20 MG TAB PO SCH (08:02)
[2020-04-16] MEDS: Simvastatin 5 MG TAB PO SCH (21:16)
[2020-04-16] MEDS: Meloxicam 7.5 MG TAB PO SCH (21:17)
[2020-04-17] MEDS: HYDROcodone/Acetaminophen 5/325 mg Tablet PO PRN ×3 (04:47→20:00)
[2020-04-17] MEDS: Cyanocobalamin (Vitamin B-12) 1,000 MCG TAB PO SCH (07:58)
[2020-04-17] MEDS: Multivit, Therapeutic 1 TAB PO SCH (07:58)
[2020-04-17] MEDS: Docusate 100 MG CAP PO SCH ×2 (07:58→19:59)
[2020-04-17] MEDS: Aspirin 325 MG TAB PO SCH (07:59)
[2020-04-17] MEDS: metFORMIN 500 MG TAB PO SCH (07:59)
[2020-04-17] MEDS: Gabapentin 300 MG CAP PO SCH ×2 (07:59→19:59)
[2020-04-17] MEDS: Cyclobenzaprine 10 MG TAB PO SCH ×3 (07:59→19:59)
[2020-04-17] MEDS: Furosemide 20 MG TAB PO SCH (07:59)
[2020-04-17] MEDS: Lisinopril 5 MG TAB PO SCH (07:59)
[2020-04-17] MEDS: Alogliptin 6.25 MG TAB PO SCH (07:59)
[2020-04-17] MEDS: Artificial Tear Sol 15 ML BOT EA EYE SCH ×2 (07:59→19:59)
[2020-04-17] MEDS: Meloxicam 7.5 MG TAB PO SCH (19:59)
[2020-04-17] MEDS: Simvastatin 5 MG TAB PO SCH (19:59)
[2020-04-18] MEDS: HYDROcodone/Acetaminophen 5/325 mg Tablet PO PRN ×3 (03:15→20:07)
[2020-04-18 08:24] VITALS: TEMP 97.9
[2020-04-18] MEDS: Alogliptin 6.25 MG TAB PO SCH (08:32)
[2020-04-18] MEDS: Docusate 100 MG CAP PO SCH ×2 (08:33→20:08)
[2020-04-18] MEDS: Aspirin 325 MG TAB PO SCH (08:33)
[2020-04-18] MEDS: Cyanocobalamin (Vitamin B-12) 1,000 MCG TAB PO SCH (08:33)
[2020-04-18] MEDS: Cyclobenzaprine 10 MG TAB PO SCH ×3 (08:33→20:08)
[2020-04-18] MEDS: Gabapentin 300 MG CAP PO SCH ×2 (08:33→20:09)
[2020-04-18] MEDS: Furosemide 20 MG TAB PO SCH (08:33)
[2020-04-18] MEDS: Lisinopril 5 MG TAB PO SCH (08:33)
[2020-04-18] MEDS: metFORMIN 500 MG TAB PO SCH (08:33)
[2020-04-18] MEDS: Multivit, Therapeutic 1 TAB PO SCH (08:33)
[2020-04-18] MEDS: Artificial Tear Sol 15 ML BOT EA EYE SCH ×2 (08:34→20:09)
[2020-04-18] MEDS: traMADol HCl 50 MG TAB PO PRN (08:38)
[2020-04-18] MEDS: Meloxicam 7.5 MG TAB PO SCH (20:08)
[2020-04-18] MEDS: Simvastatin 5 MG TAB PO SCH (20:09)
[2020-04-19] MEDS: HYDROcodone/Acetaminophen 5/325 mg Tablet PO PRN ×2 (05:15→14:17)
[2020-04-19 08:38] VITALS: BP 134/63
[2020-04-19] MEDS: Multivit, Therapeutic 1 TAB PO SCH (09:13)
[2020-04-19] MEDS: Cyanocobalamin (Vitamin B-12) 1,000 MCG TAB PO SCH (09:13)
[2020-04-19] MEDS: Cyclobenzaprine 10 MG TAB PO SCH ×2 (09:13→14:20)
[2020-04-19] MEDS: metFORMIN 500 MG TAB PO SCH (09:13)
[2020-04-19] MEDS: Gabapentin 300 MG CAP PO SCH (09:14)
[2020-04-19] MEDS: Lisinopril 5 MG TAB PO SCH (09:14)
[2020-04-19] MEDS: Alogliptin 6.25 MG TAB PO SCH (09:14)
[2020-04-19] MEDS: Docusate 100 MG CAP PO SCH (09:14)
[2020-04-19] MEDS: Furosemide 20 MG TAB PO SCH (09:14)
[2020-04-19] MEDS: Artificial Tear Sol 15 ML BOT EA EYE SCH (09:15)
[2020-04-19] MEDS: Aspirin 325 MG TAB PO SCH (09:15)
--- NOTE | 2020-04-21 00:18 | DIS ---
DATE OF ADMISSION: 04/01/2020 DATE OF DISCHARGE: 04/19/2020 ADMITTING PHYSICIAN AND DISCHARGING PHYSICIAN: Leda Rosenthal MD PRIMARY CARE PHYSICIAN: Kaitlin Dunlap, nurse practitioner, in [place]. DISCHARGE DIAGNOSES: 1. Gait instability, improving. 2. Status post bilateral L3-L5 revision hemilaminectomy and right-sided diskectomy. 3. Diabetes type 2. 4. Hypertension. 5. Peripheral neuropathy. DISCHARGE MEDICATIONS: Amlodipine 10 mg daily; [place] 5/325 one tab q.6 p.r.n. pain x7 days, #28; alogliptin 12.5 daily; aspirin 325 daily; lisinopril 5 mg daily; Flexeril 10 mg b.i.d.; furosemide 20 mg daily; gabapentin 300 b.i.d.; vitamin B12 at 1000 mcg daily; Tylenol 650 q.6 p.r.n.; simvastatin 10 mg at bedtime; metformin 500 mg daily. DISCHARGE DISPOSITION: Back to her home. ACTIVITIES: [facility] to start physical therapy and occupational therapy. Patient to follow up with neurosurgeon within 2 weeks. The patient is to follow up with her primary care physician within 1 week. BRIEF HOSPITAL COURSE: Ms. Vogt is a 69-year-old female, who had an elective back surgery, March 29, 2020. The patient does have a history of chronic back pain and laminectomy in 2017. The patient was on epidural injections with Dr. Cody and she had an PAVEL, October 2019. She states her back pain continued to worsen and she saw a neurosurgeon, Dr. Thomason, who decided to do a revision and hemilaminectomy. The patient tolerated surgery well with no complications. She had episodes of hypotension postoperatively, but these progressively improved. The patient was transferred to [facility] for skilled rehabilitation on April 01, and she was able to participate with physical therapy. She progressively improved. She was wearing a LSO brace. The patient continued to complain of spasms. She was started on Flexeril and that helped, that was progressively increased to 3 times a day. The patient stated this helped greatly. Patient on day of discharge was able to ambulate 400 feet with a rolling walker with no falls. The patient passed physical therapy. Stated that she had met some of our goals, but not all. They had recommended the patient continue outpatient physical therapy and patient opted to have home health come to her home for this. Incision sites were monitored throughout the hospitalization and healed nicely. The patient was discharged home with a friend in a stable condition on April 19, 2020. DISCHARGE VITAL SIGNS: Temperature 97.9, pulse 59, respirations 16, O2 saturation 94% on room air, blood pressure 134/63. Job ID: [id number]
== END 2020-04-19 14:55 | disposition home or self-care (01) | DRG 93 ==
LOC: MADMS 16:10
PROVIDERS: ADMIT Family Medicine; ATTEND Family Medicine
DX: R26.9 Unspecified abnormalities of gait and mobility (principal); E11.40 Type 2 diabetes mellitus with diabetic neuropathy, unspecified; I10 Essential (primary) hypertension; E66.9 Obesity, unspecified; G89.29 Other chronic pain; E78.5 Hyperlipidemia, unspecified; K59.00 Constipation, unspecified; Z79.4 Long term (current) use of insulin; Z88.8 Allergy status to other drugs, medicaments and biological substances
CPT/HCPCS: 36416

== ENCOUNTER 2021-12-16 22:55 | Emergency (ER) | payer MEDICARE | END 2021-12-17 00:02 | disposition home or self-care (01) | LOC: MADERS 22:55 | DX: J06.9 Acute upper respiratory infection, unspecified (principal); I10 Essential (primary) hypertension; E78.5 Hyperlipidemia, unspecified; E11.40 Type 2 diabetes mellitus with diabetic neuropathy, unspecified | CPT/HCPCS: 99283 ==

== ENCOUNTER 2023-01-06 17:03 | Emergency (ER) | payer OTHER ==
[2023-01-06 18:10] LABS: #Basophils 0.1 thou/uL (0.0-0.2); #Lymphocytes 1.8 thou/uL (1.20-3.40); #Monocytes 0.5 thou/uL (0.11-0.59); #Neutrophils 12.9 thou/uL (1.40-6.50); %Basophils 0.8 % (0.0-1.0); %Eosinophils 0.2 % (0.0-10.0); %Monocytes 3.1 % (0.0-10.0); Hemoglobin 8.9 g/dL (12.0-16.0); Mean Corpuscular HGB CONC 34.6 g/dL (32.0-36.0); Mean Corpuscular Hemoglobin 29.2 pg (27.0-31.0); Mean Corpuscular Volume 84.3 fl (78.0-98.0); Platelet Count 386 10x3/uL (130-400); RBC Distribution Width 14.8 % (11.5-14.5); Red Blood Cell (RBC) Count 3.06 mill/uL (4.20-5.40); White Blood Cell (WBC) Count 15.4 10x3/uL (4.8-10.8)
[2023-01-06] MEDS ORDERED: Lactated Ringer's 1,000 ML ONE ×2 (18:19→20:44)
[2023-01-06 18:25] LABS: Bilirubin Negative (Negative); Blood, Urine Negative (Negative); Clarity Hazy (Clear); Glucose, Urine (Dipstick) Negative (Negative); Ketone, Urine Negative (Negative); Leukocyte Small (Negative); Nitrite Negative (Negative); Protein, Urine (Dipstick) Negative (Neg-Trace); Specific Gravity, Urine 1.015 (1.005-1.030); Urobilinogen 0.2 mg/dL (Less than 2)
[2023-01-06 18:29] LABS: ALT (SGPT) 15 U/L (8-55); AST (SGOT) 22 U/L (5-34); Albumin 3.8 g/dL (3.4-4.8); Alkaline Phosphatase 29 U/L (40-110); Anion Gap 17 mmol/L (10-20); BUN (Urea Nitrogen) 52 mg/dL (9.8-20.1); Bilirubin, Total 0.4 mg/dL (0.2-1.2); Calc. Creatinine Clearance 0 mL/min (70-130); Carbon Dioxide 20 mmol/L (23-31); Chloride 111 mmol/L (98-107); Estimated GFR 80; Globulin 2.2 g/dL (2.4-3.5); Glucose 170 mg/dL (83-110); Lipase 18 U/L (8-78); Magnesium 2.1 mg/dL (1.6-2.6); Potassium 4.1 mmol/L (3.5-5.1); Sodium 144 mmol/L (136-145)
[2023-01-06 18:34] LABS: Bacteria/HPF Rare-Few HPF (None Seen); RBC/HPF None Seen HPF (0-3)
[2023-01-06] MEDS ORDERED: Morphine 4 MG/ML VIAL ONE (18:45)
[2023-01-06] MEDS ORDERED: Ondansetron PF 4 MG/2 ML Vial ONE (18:45)
[2023-01-06 18:49] LABS: CKMB 3.3 ng/mL (0-6.6)
[2023-01-06 21:06] LABS: Lactic Acid 2.2 mmol/L (0.5-2.2)
[2023-01-06] MEDS ORDERED: Pantoprazole 40 MG VIAL ONE (21:52)
[2023-01-06] MEDS ORDERED: Sodium Chloride 0.9% 50 ML ONE (23:03)
[2023-01-06] MEDS ORDERED: Acetaminophen 325 MG TAB ONE (23:08)
[2023-01-07 00:52] LABS: CKMB 3.2 ng/mL (0-6.6)
[2023-01-07 03:29] LABS: #Basophils 0.1 thou/uL (0.0-0.2); #Lymphocytes 2.2 thou/uL (1.20-3.40); #Monocytes 0.8 thou/uL (0.11-0.59); #Neutrophils 14.5 thou/uL (1.40-6.50); %Basophils 0.6 % (0.0-1.0); %Eosinophils 0.3 % (0.0-10.0); %Lymphocytes 12.5 % (21.0-51.0); %Monocytes 4.3 % (0.0-10.0); %Neutrophils 82.5 % (42.0-75.0); Hemoglobin 6.7 g/dL (12.0-16.0); Mean Corpuscular HGB CONC 34.2 g/dL (32.0-36.0); Mean Corpuscular Hemoglobin 29.3 pg (27.0-31.0); Mean Corpuscular Volume 85.6 fl (78.0-98.0); Mean Platelet Volume 6.9 fL (7.4-10.4); Platelet Count 321 10x3/uL (130-400); Red Blood Cell (RBC) Count 2.28 mill/uL (4.20-5.40); White Blood Cell (WBC) Count 17.6 10x3/uL (4.8-10.8)
[2023-01-07] MEDS ORDERED: Ondansetron PF 4 MG/2 ML Vial ONE (03:41)
[2023-01-07 04:14] LABS: CKMB 3.7 ng/mL (0-6.6)
[2023-01-07] MEDS ORDERED: Sodium Chloride 0.9% 500 ML ONE (04:48)
[2023-01-07] MEDS ORDERED: Dicyclomine 20 MG/2 ML VIAL ONE (05:54)
[2023-01-07] MEDS ORDERED: Dicyclomine 10 MG CAP ONE (05:55)
== END 2023-01-07 06:46 | disposition short-term general hospital (02) ==
LOC: MADERS 17:03
DX: K92.1 Melena (principal); K64.4 Residual hemorrhoidal skin tags; I48.91 Unspecified atrial fibrillation; E86.0 Dehydration; E87.20 Acidosis, unspecified; I10 Essential (primary) hypertension; E78.5 Hyperlipidemia, unspecified; E11.40 Type 2 diabetes mellitus with diabetic neuropathy, unspecified; R77.8 Other specified abnormalities of plasma proteins; Z79.899 Other long term (current) drug therapy; Z79.84 Long term (current) use of oral hypoglycemic drugs
CPT/HCPCS: 36430; 71045; 74177; 82553; 83605; 83690; 83735; 84484 ×2; 86850; 86900; 86901; 86920; 87040; 87086; 93005; 94760; P9016; 80053; 81003; 81015; 82274; 84443; 85025; 87077; 96361; 96374; 96375; 96376; C9113; J2270; J2405; J7030; J7120